=== PATIENT | female | born 1995 | race Caucasian/White ===

== ENCOUNTER 2022-10-27 15:36 | Outpatient (REF) | payer BC, SELFPAY ==
[2022-10-27 16:37] LABS: Basophils Percent Auto 0.7 % (0-2); Eosinophils Percent Auto 0.7 % (0-4); Hemoglobin 10.6 g/dl (12.0-16.0); Imm Gran Abs Auto 0.01 X10*3/uL (0.00-0.03); Imm Gran Pct Auto 0.2 % (0.0-0.4); MANUAL DIFF FLAG SCAN; SCAN SMEAR FLAG 1
[2022-10-27 16:39] LABS: Hematocrit 34.4 % (37.0-47.0); Lymphocytes Percent Auto 35.4 % (20-40); Mean Corpuscular HGB Conc 30.8 g/dl (31.0-35.0); Mean Corpuscular Hemoglobin 19.9 pg (27.0-33.0); Monocytes Absolute Auto 0.4 X10*3/uL (0.1-1.2); Monocytes Percent Auto 6.9 % (2-11); Neutrophils Absolute Auto 3.2 x10*3/uL (2.0-8.3); Neutrophils Percent Auto 56.1 % (45-73); Platelet Count 205 X10*3/uL (160-400); Red Blood Count 5.34 X10*6/uL (4.20-5.50); Red Cell Distribution Width 16.5 % (11.0-16.0); White Blood Count 5.7 X10*3/uL (4.8-10.8)
[2022-10-27 17:02] LABS: Anion Gap 11 (12-20)
[2022-10-27 17:11] LABS: Mean Corpuscular Volume 64.4 fL (80.0-98.0); PLT ABN DIST 1
[2022-10-27 17:22] LABS: Blood Urea Nitrogen 15 mg/dL (9-16); Carbon Dioxide 28 mmol/L (22-29); Chloride 103 mmol/L (96-108); Estimated Glomerular Filt Rate > 60; Glucose Random 85 mg/dL (60-115); Potassium 3.9 mmol/L (3.3-5.1); Sodium 138 mmol/L (135-145); Thyroid Stimulating Hormone 1.06 uIU/mL (0.32-4.0); Vitamin D 25-OH Total 36.9 ng/mL (>30)
[2022-10-27 18:41] LABS: SLIDE REVIEW VERIFIED
[2022-10-27 19:06] LABS: Appearance Urine Clear; Color Urine Yellow; Glucose Urine UA Negative (Negative); Leukocyte Esterase Urine Negative (Negative); Nitrite Urine Negative (Negative); PH 6.5 (5.0-9.0); Specific Gravity - Urine 1.015 (1.005-1.025); Urine Blood Negative (Negative); Urine Ketones Negative (Negative); Urine Protein Negative (Neg-Trace)
[2022-10-28 01:39] LABS: T4 Thyroxine 5.9 ug/dL (4.5-12.0)
[2022-10-28 05:30] LABS: Estimated Average Glucose 97 mg/dL
[2022-10-29 05:08] LABS: Follicle Stimulating Hormone 0.9 mIU/mL
[2022-10-29 05:34] LABS: Lutenizing Hormone <0.2 mIU/mL
[2022-11-01 23:18] LABS: Estradiol Ultra Sensitive 11 pg/mL
== END 2022-10-27 15:37 | disposition home or self-care (01) ==
LOC: HO.LAB 15:36
PROVIDERS: Visit Provider Registered Nurse
DX: Z85.830 Personal history of malignant neoplasm of bone (principal); E66.3 Overweight; M89.8X9 Other specified disorders of bone, unspecified site; Z92.21 Personal history of antineoplastic chemotherapy
CPT/HCPCS: 36415; 80048; 81003; 82306; 82670; 83001; 83002; 83036; 84436; 84443; 85025

== ENCOUNTER 2022-11-14 09:09 | Outpatient (REF) | payer BC, SELFPAY ==
[2022-11-14 11:05] LABS: Cholesterol 152 mg/dL (<200); HDL Cholesterol 50 mg/dL (>40); LDL Cholesterol Calculated 94 mg/dL (<100); Triglycerides 41 mg/dL (<150)
== END 2022-11-14 09:10 | disposition home or self-care (01) ==
LOC: HO.LAB 09:09
PROVIDERS: Visit Provider Registered Nurse
DX: Z92.21 Personal history of antineoplastic chemotherapy (principal); E66.3 Overweight; Z85.830 Personal history of malignant neoplasm of bone
CPT/HCPCS: 36415; 80061